=== PATIENT | female | born 1950 | race Caucasian/White ===

== ENCOUNTER 2016-07-21 13:04 | Inpatient (IN) | payer MEDICARE, OTHER ==
--- NOTE | 2016-07-19 08:22 | HP ---
DATE OF CLINIC: 07/13/2016 MERLE NASCIMENTO : 1950 PLANNED PROCEDURE: Right Distal Fibula Open Reduction Internal Fixation DATE OF PROCEDURE: July 21, 2016 SURGEON: Wilfredo Gifford M.D. PCP: Dr. Maryellen Taveras REFERRED HERE ER. HISTORY OF PRESENT ILLNESS Merle Nascimento is a 66 year old female. * Medication list reviewed with patient allergy list reviewed with patient. 66-year-old female who slipped and fell Tuesday walking back [facility]. She had immediate right ankle pain and difficulty weight-bearing. She did walk back to her manufactured home, but when symptoms persisted she presented to her PCP. Radiographs demonstrated a distal fibular fracture and I was asked to see her in consultation with respect to consideration of management options. Denies any prior ankle problems, no recent illnesses, no other injuries with her fall. She has some mild chronic right knee pain. 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 Patient does have some mild intellectual disabilities and history of recurrent major depression. She has no cardiopulmonary symptomatology by her report. She is on Prednisone, uncertain reason. CURRENT MEDICATION * BusPIRone HCl 15 MG Tablet TAKE 1 TABLET BY MOUTH TWICE DAILY, 90 days, 3 refills * BusPIRone HCl 15 MG Tablet 1 twice a day, 90 days, 3 refills * Calcium 600 MG Tablet 1 once a day, 90 days, 3 refills * Colace 100 MG Capsule 1 twice a day, 30 days, 1 refills * Daily Multiple Vitamins Tablet 1 once a day, 90 days, 0 refills * Effexor XR 150 MG Capsule Extended Release 24 Hour 1 once a day, 30 days, 5 refills * Fish Oil 1000 MG Capsule 1 twice a day, 90 days, 0 refills * PARoxetine HCl 40 MG Tablet 1 once a day 0 days, 0 refills * PredniSONE 10 MG Tablet 1 once a day 0 days, 0 refills * TraMADol HCl 50 MG Tablet 1-2 tabs every 4-6 hours as needed for pain. No more than 8 tabs a day, 30 days, 0 refills * Tylenol 325 MG Tablet as directed2 po q 4h prn for pain or fever > 100...max 8/day, 30 days, 1 refills * Venlafaxine HCl ER 150 MG Tablet Extended Release 24 Hour 1 once a day, 90 days, 1 refills * Vitamin D 79975 UNIT/CAPS Capsule TAKE 1 CAPSULE BY MOUTH ONCE WEEKLY DIRECTED...Smava, 28 days, Prescribe As Needed. PAST MEDICAL/SURGICAL HISTORY Reported: No recent change in medical history. Medical: A previous fracture facial, Depression, and Vertigo. Surgical / Procedural: Surgical / procedural history R shoulder surgery L wrist Surgery 10/04 and prior surgery dental surgery 01/15/10, facial fracture 05/19/14. Physical Trauma: Patient found bleeding from facial wound. Diagnoses: Depression Surgical: * Endoscopy of the upper gastrointestinal tract by [facility] 05/23/2001 * Colonoscopy (fiberoptic) by [facility] 05/23/2001; 01/21/2010 SOCIAL HISTORY Social history unchanged. Behavioral: Daily cola consumption. Not a current smoker and not chewing tobacco. Never smoked. Smoking status: Never smoker. Alcohol: No consumption of alcohol and not using alcohol. Drug Use: Not using drugs. Habits: Not exercising regularly. 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 Marital: Single. Still with Florian Boyfriend who has autism. ALLERGIES * No Known Allergies No reaction to anesthetics. FAMILY HISTORY 0 children Family history unchanged Family medical history: No significant family history No family hx of Breast cancer, ovarian cancer or Colon cancer.... No family hx of Diabetes, heart disease Leukemia - Sister REVIEW OF SYSTEMS Systemic: No fever and no recent weight change. Head: No head symptoms. Cardiovascular: No cardiovascular symptoms. Pulmonary: No pulmonary symptoms. Gastrointestinal: No gastrointestinal symptoms. Psychological: No psychological symptoms. Skin: No skin lesions and no rash. PHYSICAL FINDINGS * Vitals taken 07/13/2016 03:13 pm Weight per patient. Unable to lift tongue for tempature. BP-Sitting R 149/73 mmHg 100 - 120/56 - 80 BP Cuff Size Regular Pulse Rate-Sitting 83 bpm 50 - 100 Height 63 in 59 - 68 Weight 160 lbs 96 - 178 Body Mass Index 28.3 kg/m2 Body Surface Area 1.76 m2 Pain Level 6 Ears, Nose, Throat: * ENT: normal. Lungs: * Clear to auscultation. Cardiovascular: Heart Rate and Rhythm: * Normal. Abdomen: * Normal. Neurological: Motor: * Dominant Hand = Right Hand. Patient is a pleasant female in no acute distress. She does have some recurrent episodic outbursts where she is clearly angry with her provider and states "I can make my own decisions". She does appear to track fairly reasonably with my conversation however. Exam of the foot and ankle shows fracture boot; this is removed. Her underlying ankle is wrapped in an DOMONIQUE, this is removed, there is moderate swelling and skin integrity however is well preserved, no wounds, rashes or lesions. She is tender reproducibly over the lateral ankle. Minimal discomfort medially. She is able to dorsiflex just shy of neutral and plantarflex to 40 degrees. Mid-foot is supple. Neurovascular exam is intact distally. Calf is soft and NT. NT in the pretibial area. Cursory evaluation of the knee shows no focal tenderness and non-irritable motion with no swelling or effusion. TESTS X-rays, 3 views of the right ankle from 07/12/16, demonstrate a displaced Gupta B distal fibular fracture. The mortise appears relatively well preserved. ASSESSMENT Displaced Gupta B distal fibular fracture, right ankle. THERAPY * Patient fall risk screen positive. * Patient eligible for fall risk assessment. * Patient received fall risk assessment. PLAN * Disp fx of lateral malleolus of right fibula, init *[facility], needs a knee scooter for Right distal fibual fracture that is needing surgery to fix S82.61XA, M25.571, 60 days, 0 refills Right distal fibula open reduction internal fixation. 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 We reviewed operative and non-operative management. In my opinion, given her displacement the best option is surgical intervention with ORIF and distal fibular plate. This would improve overall alignment, improve chance of a good or excellent outcome and decrease her time for mobilization. Discussed with patient in detail the limitations, expectations as well as risks and possible complications of surgery including, but not limited to wound problems or infection, neurovascular injury, continued pain or dysfunction including the possibility of fracture nonunion, malunion or hardware problems that may require additional operative or non-operative treatment. With the surgery she would still necessitate approximately 4 weeks non-weightbearing postoperatively. The first 2 weeks she would be immobilized in a splint and then back in a Cam walker starting to work on mobilization. If they can arrange for her to have some additional support I would like to move forward next week if possible. Request for a consultation was sent through her support provider network. Tentative planned surgery for Tuesday or Tuesday. Patient also realizes the perioperative risks including risks associated with anesthesia and would like to proceed. A full PAR conference was held, questions and concerns addressed and informed consent was obtained. Patient will be sent from my office for completion of the preoperative workup. In the meantime, I will write a prescription for a knee scooter, which may help her with postop independence. 30 minutes spent in face to face consultation with the patient today of which greater than 50% spent in counseling. CARE TEAM Maryellen Taveras MD Family Practice DEE DEE/sg
[~2016-07-21 13:04] MED LIST: CEFAZOLIN SODIUM 2 GRAM PREMIX 100 ML IV PRN
[2016-07-21] MEDS ORDERED: IV START KIT ONE (13:06)
[2016-07-21] MEDS ORDERED: CEFAZOLIN SODIUM 2 GRAM PREMIX 100 ML IV ONE (13:06)
[2016-07-21] MEDS ORDERED: LACTATED RINGERS 1,000 ML ONE ×2 (13:06→17:19)
[2016-07-21 13:54] LABS: HEMOGLOBIN 14.1 gm/l (12.0-16.0); MEAN CELL VOLUME 89.7 fl (81.0-99.0); MEAN CORPUSCULAR HEMOGLOBIN 30.1 pg (27.0-31.0); MEAN CORPUSCULAR HGB CONC 33.6 g/dl (33.0-37.0); RED CELL DISTRIBUTION WIDTH 11.9 % (11.5-14.5)
[2016-07-21 14:40] LABS: ALBUMIN 3.8 gm/dL (3.5-5.7); CALCIUM 9.7 mg/dL (8.6-10.3)
[2016-07-21] MEDS ORDERED: LORAZEPAM 2 MG/ML 1ML SDV IV ONE (15:31)
[2016-07-21] MEDS ORDERED: LIDOCAINE 2% (PRES FREE) 5 ML VIAL ONE (16:22)
[2016-07-21] MEDS ORDERED: PROPOFOL 20 ML IV ONE (16:22)
[2016-07-21] MEDS ORDERED: MIDAZOLAM HCL 1 MG/ML 2ML VIAL ONE (16:24)
[2016-07-21] MEDS ORDERED: MIDAZOLAM HCL 1 MG/ML 2ML VIAL IV ONE (17:55)
[2016-07-21] MEDS ORDERED: FENTANYL 5 ML ONE (18:34)
[2016-07-21] MEDS ORDERED: ONDANSETRON 4 MG/2ML 2 ML VIAL ONE (18:34)
[2016-07-21] MEDS ORDERED: ONDANSETRON 4 MG/2ML 2 ML VIAL IV PRN ×2 (18:55→20:25)
[2016-07-21] MEDS ORDERED: FENTANYL 100 MCG/2 ML VIAL IV PRN (18:55)
[2016-07-21] MEDS ORDERED: ATROPINE SULFATE 0.4 MG/1 ML VIAL IV PRN (18:55)
[2016-07-21] MEDS ORDERED: NALOXONE HCL 0.4 MG/ML VIAL IV PRN (18:55)
[2016-07-21] MEDS ORDERED: PROMETHAZINE HCL 25 MG/ML VIAL IM PRN (18:55)
[2016-07-21] MEDS ORDERED: HYDROMORPHONE HCL 1 MG/ML SYRINGE IV PRN (18:55)
[2016-07-21] MEDS ORDERED: LACTATED RINGERS 1,000 ML IV SCH (19:00)
[2016-07-21] MEDS ORDERED: BUPIVACAINE 0.5% W/EPI SDV 30 ML VIAL ONE (19:27)
--- NOTE | 2016-07-21 19:31 | RAD ---
Name: YAHAIRA NASCIMENTO Exam: C-arm fluoroscopy Comparison: None Clinical history: Intraoperative exam Findings: 5.4 seconds fluoroscopy was utilized for the procedure. 2. C-arm spot images are submitted. Distal right fibular fracture is secured by lateral compression plate and multiple screws. There is no evidence for hardware fracture. Bony alignment is normal. Ankle mortise is intact. Impression: Normal appearance of the distal right fibular ORIF. Please see operative report for further information.
[2016-07-21] MEDS ORDERED: ACETAMINOPHEN 325 MG TABLET PO PRN (20:25)
[2016-07-21] MEDS ORDERED: BLISTEX LIPSTICK 1 EACH TP PRN (20:25)
[2016-07-21] MEDS ORDERED: MENTHOL/CETYLPYRD 1 EACH LOZENGE PO PRN (20:25)
[2016-07-21] MEDS ORDERED: HYDROMORPHONE HCL 2 MG/ML SYRINGE IV PRN (20:25)
--- NOTE | 2016-07-21 20:36 | RAD ---
Name: YAHAIRA NASCIMENTO Exam: Right ankle Comparison: 07/12/2016 Clinical history: Status post ORIF Findings: 2 views right ankle are submitted. Bone density is normal. Ankle mortise is intact. There is been ORIF of the distal right fibular fracture. Fracture fragment alignment is normal status post screw plate fixation. Soft tissue air from the surgery is identified. There is a large calcaneal spur Impression: Normal postop appearance ORIF distal right fibula. Please see operative report for further information.
[2016-07-21] MEDS ORDERED: PUMP TUBING ONE (21:19)
[2016-07-21] MEDS: HYDROMORPHONE HCL 1 MG/ML SYRINGE IV PRN (21:26)
[2016-07-21] MEDS: LACTATED RINGERS 1,000 ML IV SCH (21:26)
[2016-07-22] MEDS: HYDROMORPHONE HCL 1 MG/ML SYRINGE IV PRN ×2 (00:13→02:53)
[2016-07-22] MEDS: OXYCODONE/ACETAMINOPHEN 5/325 MG TABLET PO PRN ×5 (01:17→21:45)
[2016-07-22 03:59] VITALS: BMI 31.8
[2016-07-22] MEDS: LACTATED RINGERS 1,000 ML IV SCH ×2 (05:32→17:30)
[2016-07-22] MEDS ORDERED: PNEUMOCOCCAL 23-VAL P-SAC VAC 0.5 ML VIAL IM V ONE (09:00)
[2016-07-22] MEDS ORDERED: LIDOCAINE 1% (PRES FREE) 30 ML VIAL ONE (10:41)
--- NOTE | 2016-07-22 12:40 | PDOC43 ---
- Subjective Findings: POD1 after Right Distal Fibula ORIF. Patient reports no new complaint this morning. Subjective: Reports Pain Tolerable, Denies Chest Pain, Denies Shortness of Breath, Denies Nausea, Denies Vomiting - Objective Vital Signs Temperature 98.4 F 07/22/16 03:00 Pulse Rate 73 07/22/16 06:47 Respiratory Rate 18 07/22/16 06:47 Blood Pressure 111/60 07/22/16 06:47 O2 Saturation by Pulse Oximetry 93 07/22/16 06:47 Oxygen Delivery Method Room Air Oxygen Flow Rate 0 Laboratory 07/21/16 13:45 07/21/16 13:45 07/21/16 13:45 Globulin 4.0 H Active Medication Orders Category Date Time Status Acetaminophen [Tylenol] Med 07/21/16 20:25 Active 325 - 650 mg PO Q4H PRN Hydromorphone HCl [Dilaudid] Med 07/21/16 20:25 Active 1 - 2 mg IV Q4H PRN Hydromorphone HCl [Dilaudid] Med 07/21/16 20:38 Active 1 - 2 mg IV Q4H PRN Lactated Ringers 1,000 ml Med 07/21/16 20:25 Active IV 100 mls/hr Lip [place] [Blistex] Med 07/21/16 20:25 Active 1 each TP PRN PRN Menthol/Cetylpyridinium [Cepacol] Med 07/21/16 20:25 Active 1 each PO PRN PRN Ondansetron 4 mg/2ml Vial [Zofran] Med 07/21/16 20:25 Active 4 mg IV Q6H PRN Oxycodone HCl/Acetaminophen [Percocet 5/325] Med 07/21/16 20:25 Active 1 - 2 tab PO Q4H PRN Sodium Chloride 0.9% Flush [Normal Saline 10ml Flush] Med 07/21/16 20:25 Active 10 - 50 ml IV PRN PRN Sodium Chloride 0.9% Flush [Normal Saline 10ml Flush] Med 07/22/16 01:00 Active 10 ml IV Q8HR Intake and Output 07/20/16 07/21/16 07/22/16 23:59 23:59 23:59 Intake Total 1147 Output Total 350 Balance 797 General: Afebrile Lungs: Normal Air Movement Skin: Normal Color, Warm, Dry - Right Lower Extremity Incision: Dressing Clean/Dry/Intact Motor: Extensor Hallucis Longus: 5/5 Gross Sensation to Light Touch: Present: Deep Peroneal Nerve, Superficial Peroneal Nerve - Problems (1) History of fracture of right ankle Status: Acute (2) Status post ORIF of fracture of ankle Status: Acute - Additional Comments 1. Physical Therapy: WBAT in Fracture boot with FWW or other appropriate walking aid. 2. Pain Control: Multimodal pain control as needed. 3. DVT Prophylaxis: Mobilization. 4. Disposition: Social Work working on discharge planning, whether home with medicare insurance specialist or SNF. 5. Medical Issues: No new medical problems.
[2016-07-23] MEDS: OXYCODONE/ACETAMINOPHEN 5/325 MG TABLET PO PRN ×3 (06:42→19:10)
--- NOTE | 2016-07-23 08:41 | PCMBPN ---
Brief Post Op Note: Date of Procedure: 07/21/16 Start Time: 1800 Preoperative Diagnosis: 1. right distal fibula fracture Postoperative Diagnosis: 1. Same Procedure: right distal fibular ORIF Surgeon: Wilfredo Gifford MD Assist: Piotr Buitrago PA-C Anesthesia: Yariel Ayon Findings: as above Condition: stable to PACU Complications: none IV Fluids: 1000 mLs of LR Urine Output: 0 mLs Estimated Blood Loss: 5 mLs Tourniquet Time: 40 min at 250 mm Hg Specimens: none Implants: Synthes distal fibular locking plate with 2.7mm locking screws distally and 3.5mm cortical screws proximally Drains: N/A Wilfredo Gifford MD
--- NOTE | 2016-07-23 08:46 | PDOC43 ---
- Subjective Findings: Patient resting comfortably, boot in place, no complaints of pain. No events overnight, no new issues. States that she "will think about" the possibility of SNF. Subjective: Reports Pain Tolerable - Objective Vital Signs Temperature 97.7 F 07/23/16 07:00 Pulse Rate 77 07/23/16 07:00 Respiratory Rate 16 07/23/16 07:00 Blood Pressure 123/60 07/23/16 07:00 O2 Saturation by Pulse Oximetry 92 07/23/16 07:00 Oxygen Delivery Method Room Air Oxygen Flow Rate 0 Laboratory 07/21/16 13:45 07/21/16 13:45 Active Medication Orders Category Date Time Status Acetaminophen [Tylenol] Med 07/21/16 20:25 Active 325 - 650 mg PO Q4H PRN Hydromorphone HCl [Dilaudid] Med 07/21/16 20:25 Active 1 - 2 mg IV Q4H PRN Hydromorphone HCl [Dilaudid] Med 07/21/16 20:38 Active 1 - 2 mg IV Q4H PRN Lip [place] [Blistex] Med 07/21/16 20:25 Active 1 each TP PRN PRN Menthol/Cetylpyridinium [Cepacol] Med 07/21/16 20:25 Active 1 each PO PRN PRN Ondansetron 4 mg/2ml Vial [Zofran] Med 07/21/16 20:25 Active 4 mg IV Q6H PRN Oxycodone HCl/Acetaminophen [Percocet 5/325] Med 07/21/16 20:25 Active 1 - 2 tab PO Q4H PRN Sodium Chloride 0.9% Flush [Normal Saline 10ml Flush] Med 07/21/16 20:25 Active 10 - 50 ml IV PRN PRN Sodium Chloride 0.9% Flush [Normal Saline 10ml Flush] Med 07/22/16 01:00 Active 10 ml IV Q8HR Intake and Output 07/21/16 07/22/16 07/23/16 23:59 23:59 23:59 Intake Total 1507 250 Output Total 750 550 Balance 757 -300 General: Afebrile, No Acute Distress HEENT: EOMI Lungs: Normal Air Movement Abdomen: Soft, No Tenderness Skin: Normal Color, Warm, Dry, Intact Neurological: Grossly Intact, Alert, Oriented x 4, Normal Speech Psych/Mental Status: Normal Affect, Normal Mood - Right Lower Extremity Incision: Dressing Clean/Dry/Intact, Well Approximated, No Drainage Motor: Extensor Hallucis Longus: 5/5, Tibialis Anterior: 5/5, Gastrocnemius: 5/5 , Peroneals: 5/5, Quadriceps: 5/5 Gross Sensation to Light Touch: Present: Deep Peroneal Nerve, Superficial Peroneal Nerve, Medial Plantar Nerve, Lateral Plantar Nerve, Sural Nerve, Saphenous Nerve Capillary Refill: < 3 Seconds - Problems (1) Status post ORIF of fracture of ankle Status: Acute - Additional Comments POD#2 R ankle ORIF 1. Physical Therapy: WBAT in Fracture boot with FWW or other appropriate walking aid. 2. Pain Control: Multimodal pain control as needed. 3. DVT Prophylaxis: Mobilization. 4. Disposition: Social Work working on discharge planning, whether home with eye care professional or SNF. 5. Medical Issues: No new medical problems. Wilfredo Gifford MD
[2016-07-24] MEDS: OXYCODONE/ACETAMINOPHEN 5/325 MG TABLET PO PRN (10:02)
--- NOTE | 2016-07-24 10:06 | PDOC43 ---
- Subjective Findings: Doing well this morning, pain controlled, up with PT and compliant with NWB. Subjective: Reports Pain Tolerable - Objective Vital Signs Temperature 97.8 F 07/24/16 07:11 Pulse Rate 78 07/24/16 07:11 Respiratory Rate 16 07/24/16 07:11 Blood Pressure 110/61 07/24/16 07:11 O2 Saturation by Pulse Oximetry 93 07/24/16 07:11 Oxygen Delivery Method Room Air Oxygen Flow Rate 0 Laboratory 07/21/16 13:45 07/21/16 13:45 Active Medication Orders Category Date Time Status Acetaminophen [Tylenol] Med 07/21/16 20:25 Active 325 - 650 mg PO Q4H PRN Hydromorphone HCl [Dilaudid] Med 07/21/16 20:25 Active 1 - 2 mg IV Q4H PRN Hydromorphone HCl [Dilaudid] Med 07/21/16 20:38 Active 1 - 2 mg IV Q4H PRN Lip [place] [Blistex] Med 07/21/16 20:25 Active 1 each TP PRN PRN Menthol/Cetylpyridinium [Cepacol] Med 07/21/16 20:25 Active 1 each PO PRN PRN Ondansetron 4 mg/2ml Vial [Zofran] Med 07/21/16 20:25 Active 4 mg IV Q6H PRN Oxycodone HCl/Acetaminophen [Percocet 5/325] Med 07/21/16 20:25 Active 1 - 2 tab PO Q4H PRN Sodium Chloride 0.9% Flush [Normal Saline 10ml Flush] Med 07/21/16 20:25 Active 10 - 50 ml IV PRN PRN Sodium Chloride 0.9% Flush [Normal Saline 10ml Flush] Med 07/22/16 01:00 Active 10 ml IV Q8HR Intake and Output 07/22/16 07/23/16 07/24/16 23:59 23:59 23:59 Intake Total 1507 550 500 Output Total 750 850 300 Balance 757 -300 200 General: Afebrile, No Acute Distress Lungs: Normal Air Movement Skin: Normal Color, Warm, Dry Neurological: Alert - Right Lower Extremity Incision: Dressing Clean/Dry/Intact, No Drainage Motor: Extensor Hallucis Longus: 5/5, Tibialis Anterior: 5/5, Gastrocnemius: 5/5 , Peroneals: 5/5, Quadriceps: 5/5 Gross Sensation to Light Touch: Present: Deep Peroneal Nerve, Superficial Peroneal Nerve, Medial Plantar Nerve, Lateral Plantar Nerve, Sural Nerve, Saphenous Nerve Capillary Refill: < 3 Seconds - Problems (1) Status post ORIF of fracture of ankle Status: Acute - Additional Comments POD#3 R ankle ORIF 1. Physical Therapy: WBAT in Fracture boot with FWW or other appropriate walking aid. 2. Pain Control: Multimodal pain control as needed. 3. DVT Prophylaxis: Mobilization. 4. Disposition: Planning for discharge home Tuesday with 24hr assistance. 5. Medical Issues: No new medical problems. Wilfredo Gifford MD
--- NOTE | 2016-07-25 09:48 | PDOC43 ---
- Subjective Findings: Patient doing well with PT, tolerating diet and therapies. No new issues. Excited to get home tomorrow. Subjective: Reports Pain Tolerable - Objective Vital Signs Temperature 98.2 F 07/25/16 07:49 Pulse Rate 82 07/25/16 07:49 Respiratory Rate 18 07/25/16 07:49 Blood Pressure 112/65 07/25/16 07:49 O2 Saturation by Pulse Oximetry 98 07/25/16 07:49 Oxygen Delivery Method Room Air Oxygen Flow Rate 0 Laboratory 07/21/16 13:45 07/21/16 13:45 Active Medication Orders Category Date Time Status Acetaminophen [Tylenol] Med 07/21/16 20:25 Active 325 - 650 mg PO Q4H PRN Hydromorphone HCl [Dilaudid] Med 07/21/16 20:25 Active 1 - 2 mg IV Q4H PRN Hydromorphone HCl [Dilaudid] Med 07/21/16 20:38 Active 1 - 2 mg IV Q4H PRN Lip [place] [Blistex] Med 07/21/16 20:25 Active 1 each TP PRN PRN Menthol/Cetylpyridinium [Cepacol] Med 07/21/16 20:25 Active 1 each PO PRN PRN Ondansetron 4 mg/2ml Vial [Zofran] Med 07/21/16 20:25 Active 4 mg IV Q6H PRN Oxycodone HCl/Acetaminophen [Percocet 5/325] Med 07/21/16 20:25 Active 1 - 2 tab PO Q4H PRN Sodium Chloride 0.9% Flush [Normal Saline 10ml Flush] Med 07/21/16 20:25 Active 10 - 50 ml IV PRN PRN Sodium Chloride 0.9% Flush [Normal Saline 10ml Flush] Med 07/22/16 01:00 Active 10 ml IV Q8HR Intake and Output 07/23/16 07/24/16 07/25/16 23:59 23:59 23:59 Intake Total 550 860 500 Output Total 850 525 100 Balance -300 335 400 General: Afebrile, No Acute Distress Lungs: Normal Air Movement Abdomen: Soft Skin: Normal Color, Warm, Dry Neurological: Alert - Right Lower Extremity Incision: Dressing Clean/Dry/Intact, No Drainage, No Erythema, No Rash Motor: Extensor Hallucis Longus: 5/5, Tibialis Anterior: 5/5, Gastrocnemius: 5/5 , Peroneals: 5/5, Quadriceps: 5/5 Gross Sensation to Light Touch: Present: Deep Peroneal Nerve, Superficial Peroneal Nerve, Medial Plantar Nerve, Lateral Plantar Nerve, Sural Nerve, Saphenous Nerve Capillary Refill: < 3 Seconds - Problems (1) Status post ORIF of fracture of ankle Status: Acute - Additional Comments POD#4 R ankle ORIF 1. Physical Therapy: TTWB in Fracture boot with FWW or other appropriate walking aid. 2. Pain Control: Multimodal pain control as needed. 3. DVT Prophylaxis: Mobilization. 4. Disposition: Planning for discharge home Tuesday with 24hr assistance. 5. Medical Issues: No new medical problems. Wilfredo Gifford MD
--- NOTE | 2016-07-26 08:38 | PDOC43 ---
- Subjective Findings: POD5 after Right Ankle ORIF.No new complaint today. Subjective: Reports Pain Tolerable - Objective Vital Signs Temperature 97.4 F 07/26/16 07:59 Pulse Rate 80 07/26/16 07:59 Respiratory Rate 20 07/26/16 07:59 Blood Pressure 125/65 07/26/16 07:59 O2 Saturation by Pulse Oximetry 97 07/26/16 07:59 Oxygen Delivery Method Room Air Oxygen Flow Rate 0 Laboratory 07/21/16 13:45 07/21/16 13:45 Active Medication Orders Category Date Time Status Acetaminophen [Tylenol] Med 07/21/16 20:25 Active 325 - 650 mg PO Q4H PRN Hydromorphone HCl [Dilaudid] Med 07/21/16 20:38 Active 1 - 2 mg IV Q4H PRN Lip [place] [Blistex] Med 07/21/16 20:25 Active 1 each TP PRN PRN Menthol/Cetylpyridinium [Cepacol] Med 07/21/16 20:25 Active 1 each PO PRN PRN Ondansetron 4 mg/2ml Vial [Zofran] Med 07/21/16 20:25 Active 4 mg IV Q6H PRN Oxycodone HCl/Acetaminophen [Percocet 5/325] Med 07/21/16 20:25 Active 1 - 2 tab PO Q4H PRN Sodium Chloride 0.9% Flush [Normal Saline 10ml Flush] Med 07/21/16 20:25 Active 10 - 50 ml IV PRN PRN Sodium Chloride 0.9% Flush [Normal Saline 10ml Flush] Med 07/22/16 01:00 Active 10 ml IV Q8HR Intake and Output 07/24/16 07/25/16 07/26/16 23:59 23:59 23:59 Intake Total 860 1100 360 Output Total 525 575 450 Balance 335 525 -90 General: Afebrile Lungs: Normal Air Movement Skin: Normal Color, Warm, Dry - Right Lower Extremity Incision: Dressing Clean/Dry/Intact Motor: Extensor Hallucis Longus: 5/5, Tibialis Anterior: 5/5 Gross Sensation to Light Touch: Present: Deep Peroneal Nerve, Superficial Peroneal Nerve - Problems (1) History of fracture of right ankle Status: Acute (2) Status post ORIF of fracture of ankle Status: Acute - Additional Comments POD#5 R ankle ORIF 1. Physical Therapy: TTWB in Fracture boot with FWW or other appropriate walking aid. 2. Pain Control: Multimodal pain control as needed. 3. DVT Prophylaxis: Mobilization. 4. Disposition: Planning for discharge home Today with 24hr assistance. 5. Medical Issues: No new medical problems. Wilfredo Gifford MD
[2016-07-26 08:57] VITALS: BP 127/61
--- NOTE | 2016-07-27 11:44 | OP ---
Merle NASCIMENTO : 1950 [id number] DATE OF SERVICE: July 21, 2016 PREOPERATIVE DIAGNOSIS: Right distal fibular fracture. POSTOPERATIVE DIAGNOSIS: Right distal fibular fracture. PROCEDURE PERFORMED: RIGHT DISTAL FIBULAR OPEN REDUCTION INTERNAL FIXATION. SURGEON: Wilfredo Gifford M.D. RN OSTOMY: Piotr Buitrago P.A.-C. ANESTHESIA: Yariel Ayon C.R.N.A. SPECIMENS: No material was sent to the laboratory. ESTIMATED BLOOD LOSS: 5 mL FLUIDS REPLACED: 1,000 mL of crystalloid. TOURNIQUET TIME: 40 minutes at 250 mmHg. IMPLANTS: Synthes distal fibular locking plate with 2.7 mm locking screws distally and 3.5 mm cortical screws proximally. INDICATIONS: This is a 66-year-old female who sustained a right ankle fracture in a fall, she had an unstable mortise. She was initially splinted and her leg was elevated to decrease her swelling and then she presented for evaluation by orthopedics. Her exam and radiographic findings are consistent with the above. It was recommended that she undergo a right ankle open reduction internal fixation in order to restore appropriate alignment and stability to her mortise. Risks, benefits and alternatives were discussed with the patient and she elected to proceed with surgery. Informed consent was obtained and documented in the chart and the patient was placed on the schedule the first available convenience. DESCRIPTION OF PROCEDURE: The patient was identified in the preoperative holding area where she was marked with an indelible marker by the operating surgeon. She was taken to the operating room where she underwent a spinal anesthetic. A well padded pre-calibrated nonsterile tourniquet was placed on her right upper leg and she was positioned supine on the operating room table. All bony prominences were padded. She was prepped and draped in the usual sterile fashion for surgery. An operative time out was performed and confirmed by all members of the operative team then the patient received perioperative antibiotics. Her leg was elevated and exsanguinated using the Esmarch bandage and the tourniquet was inflated to 250 mmHg. A standard longitudinal incision was made over the distal portion of the fibula. Dissection was carried down and a subperiosteal peel was performed. Neurovascular structures were protected. Hohmann retractors were placed and the fracture was identified. The fracture was displaced and curetted to clean out fracture callus, thoroughly irrigated and then a provisional reduction was obtained using a lobster claw fracture reduction forceps. With provisional reduction obtained a Synthes distal fibular locking plate was brought onto the field. Position and size was confirmed using intraoperative fluoroscopy. A single nonlocking 2.7 mm was placed distally obtaining good fixation in the distal fragment and sucking the plate down to the bone. A cluster of locking screws was then placed distally and this nonlocking screw was placed with a locking screw. While the fracture was held in a reduced position 3.5 mm cortical screws were placed proximally obtaining good stability with the plate in a bridge fashion with good cortical apposition. The wound was copiously irrigated with sterile saline. The periosteal tissue was closed over the plate using #0 Vicryl, subcutaneous tissues with #2-0 Vicryl, and the skin with nylon. A sterile dressing of Xeroform, fluffs, web roll and an DOMONIQUE bandage was applied and the patient was placed into a removable walking boot. The tourniquet was deflated and the drapes were removed. The patient was awakened from her anesthesia. She was transferred to a stretcher and taken postoperatively to the postanesthesia care unit in stable condition. There were no observed intraoperative complications during this procedure. Job [id number] Cc: Wolcott Missy
--- NOTE | 2016-08-05 16:57 | PDOC5 ---
ADMIT DATE: 07/21/16 DISCHARGE DATE: 07/26/16 ADMISSION DIAGNOSES: right ankle fracture PROCEDURES PERFORMED THIS HOSPITALIZATION: right ankle ORIF SURGEON:Wilfredo Gifford MD CONSULTATIONS: PT/OT/Care Mgmt BRIEF HISTORY:This is a 66 year old female patient who sustained a right lateral malleolus fracture in a fall; she was seen at the ED and splinted, then sent to Ortho for followup. Exam and xrays revealed an unstable fracture, and we recommended surgical stabilization. She presented on the day of surgery for an open reduction and internal fixation of her right lateral malleolus fracture. BRIEF HOSPITAL COURSE: Patient tolerated the procedure without complication and was admitted postoperatively for observation, pain control, and rehabilitation. She has significant cognitive limitations and lives alone; Care Management was consulted to assist with planning for discharge. She progressed with PT and demonstrated the ability to maintain her weightbearing restrictions, and arrangements were made for in-home 24-hour caregiver support . See daily notes for additional details. On POD#4 patient met all criteria for discharge and was discharged home. Follow-up appointments for Orthopedics were provided at the time of discharge. Patient restarted preoperative medications, and received prescriptions for postoperative pain medications. Wilfredo Gifford MD - Discharge Diagnosis (1) Status post ORIF of fracture of ankle Status: Acute - Discharge Plan Additional Instructions: PROCEDURE: RIGHT ANKLE OPEN REDUCTION AND INTERNAL FIXATION 1.) DRESSINGS: leave dressings in place, keep splint clean and dry at all times. 2.) ACTIVITY: crutches at all times, nonweightbearing on right leg. Keep leg elevated as much as possible for the first 3-4 days after surgery to limit the risk of soft tissue complications. 3.) MEDICATIONS: Percocet as needed for pain, transitioning to Tylenol as pain and swelling subside. Colace as needed for constipation. 4.) FOLLOWUP: August 05 at 11:00 AM at the [facility]. Call [phone] to confirm your appointment time and location. 5.) QUESTIONS/CONCERNS: Contact my office at [phone] with any questions or concerns. Call [phone] or go to ED for any emergencies. Wilfredo Gifford MD Prescriptions: Oxycodone HCl/Acetaminophen [PERCOCET 5/325 MG TABLET (SHF)] 1 - 2 tab PO Q4H PRN #60 tab PRN Reason: Pain Follow-Up: Jackson Buitrago PA [Physician Senior Java Software Developer] - 08/05/16 11:00 am
== END 2016-07-26 13:45 | disposition home health service (06) | DRG 482 ==
LOC: SDC 13:04 → MS 19:50
PROVIDERS: ADMIT Orthopaedic Surgery; ATTEND Orthopaedic Surgery
PROC: 0QSB04Z Reposition Right Lower Femur with Internal Fixation Device, Open Approach (ICD-10-PCS; principal; 2016-07-21)
DX: S82.401A Unspecified fracture of shaft of right fibula, initial encounter for closed fracture (principal); W00.9XXA Unspecified fall due to ice and snow, initial encounter; Y92.22 Religious institution as the place of occurrence of the external cause

== ENCOUNTER 2016-09-17 19:26 | Emergency (ER) | payer MEDICARE, OTHER ==
--- NOTE | 2016-09-17 21:01 | RAD ---
Exam: Three-view right ankle COMPARISON: 08/24/2016 INDICATION: Ground-level fall, right ankle pain. FINDINGS: AP, lateral and oblique views of the right ankle were obtained. Minor diffuse soft tissue swelling persists. Postsurgical changes of plate and screw fixation are again identified within the distal right fibula. There is no evidence of hardware loosening or failure. Fracture is becoming less apparent. No acute displaced fracture is identified. Ankle mortise intact. IMPRESSION: No acute osseous abnormality in the right ankle. Progressive interval healing following ORIF of the distal right fibular fracture.
--- NOTE | 2016-09-17 21:02 | RAD ---
Exam: Three-view left hand COMPARISON: None INDICATION: Left hand pain post ground-level fall. FINDINGS: PA, lateral and oblique views of the left hand were obtained. Diffuse bony osteopenia. No apparent soft tissue swelling. No acute fracture is identified. Advanced degenerative changes are noted within the first CMC joint. Less severe degenerative changes are present within the interphalangeal joints, most prominent within the fifth DIP joint. IMPRESSION: No acute osseous abnormality in the left hand. Advanced degenerative changes first CMC joint. Osteopenia.
--- NOTE | 2016-09-17 21:05 | RAD ---
Exam: Three-view cervical spine COMPARISON: CT 05/18/2014 INDICATION: Ground-level fall, neck pain. Findings: AP, lateral and open-mouth odontoid views of the cervical spine were obtained. There is visualization through C7 on the lateral view. Alignment is abnormal but unchanged, with overall straightening of the normal cervical lordosis and 2 to 3 mm of anterolisthesis of C4 on C5 and trace anterolisthesis of C3 on C4. Atlantoaxial relationships are maintained. There is no prevertebral soft tissue swelling. There is fusion across the C4-5 facet joints. Anterior fusion is also appreciated across C5-6 and C6-7. IMPRESSION: No acute osseous abnormality in the cervical spine. Overall, stable appearance compared with 05/18/2014 CT with chronic changes as above.
--- NOTE | 2016-09-17 21:06 | RAD ---
Exam: Three-view thoracic spine COMPARISON: None INDICATION: Ground-level fall. FINDINGS: AP, lateral and swimmer's views of the thoracic spine were obtained. Sagittal alignment is within normal limits. No vertebral body compression fractures identified. Minor degenerative change are seen within the lower thoracic spine. Visualized hemithoraces within normal limits. IMPRESSION: No acute osseous abnormality within the thoracic spine
--- NOTE | 2016-09-17 21:07 | RAD ---
Exam: Three-view lumbar spine COMPARISON: 06/03/2015 INDICATION: Ground-level fall. Findings: AP, lateral and AP angled views of the lumbar spine were obtained. There are 5 nonrib-bearing lumbar vertebra. Sagittal alignment is unchanged, with trace retrolisthesis of L2 on L3 and L3 on L4. There is multilevel degenerative disc disease, most pronounced at L4-5. There is no vertebral body compression fracture. Sacroiliac joints are within normal limits and symmetric. Sacral foramen are intact. IMPRESSION: Stable exam since 06/03/2015 without acute osseous abnormality within the lumbar spine.
== END 2016-09-17 21:26 | disposition home or self-care (01) ==
LOC: ED 19:26
DX: M54.9 Dorsalgia, unspecified (principal); M79.661 Pain in right lower leg; S60.212A Contusion of left wrist, initial encounter; M43.22 Fusion of spine, cervical region; W17.89XA Other fall from one level to another, initial encounter; Y93.01 Activity, walking, marching and hiking; Y92.9 Unspecified place or not applicable

== ENCOUNTER 2016-10-04 17:24 | Emergency (ER) | payer MEDICARE, OTHER ==
--- NOTE | 2016-10-04 19:39 | RAD ---
Name: YAHAIRA NASCIMENTO Exam: Right ankle Comparison: 09/17/2016 Clinical history: Ground-level fall. Right ankle pain. Findings: 3 views of the right ankle are submitted. Bone density is normal. Ankle mortise is intact. There is been prior ORIF of the distal right fibular fracture. The lateral compression plate and multiple screws are in stable position. There is no evidence for hardware fracture or loosening. Bony fracture fragment alignment is normal. There is periosteal reaction at the fracture site compatible with healing. There is no new fracture. Large calcaneal spurs are identified. There is no significant soft tissue swelling. Impression: ] 1. Prior ORIF of a distal right fibular fracture. There is no change in the hardware. 2. Healing distal right fibular fracture. 3. Large calcaneal spurs 4. No acute bony abnormality.
== END 2016-10-04 20:47 | disposition home or self-care (01) ==
LOC: ED 17:24
DX: S93.401A Sprain of unspecified ligament of right ankle, initial encounter (principal); W18.09XA Striking against other object with subsequent fall, initial encounter; Y93.01 Activity, walking, marching and hiking; Y92.009 Unspecified place in unspecified non-institutional (private) residence as the place of occurrence of the external cause